=== PATIENT | male | born 1960 | race Caucasian/White ===

== ENCOUNTER → 2016-05-06 | Outpatient (CLI) | payer OTHER | END | disposition home or self-care (01) | LOC: CFH 11:56 | PROVIDERS: ATTEND Internal Medicine Pulmonary Disease | DX: J84.10 Pulmonary fibrosis, unspecified (principal); J47.9 Bronchiectasis, uncomplicated; R59.0 Localized enlarged lymph nodes | CPT/HCPCS: 71250 ==

== ENCOUNTER → 2016-08-29 | Outpatient (CLI) | payer OTHER | END | disposition home or self-care (01) | LOC: CFH 11:27 | PROVIDERS: ATTEND Internal Medicine Pulmonary Disease | DX: J84.112 Idiopathic pulmonary fibrosis (principal); Z78.9 Other specified health status | CPT/HCPCS: 76700 ==

== ENCOUNTER 2017-09-30 09:51 | Emergency (ER) | payer OTHER ==
[~2017-09-30] VITALS: Ht 180.3 cm; Wt 76.0 kg
[2017-09-30] MEDS ORDERED: OMEP40CA6 PO (10:26)
[2017-09-30] MEDS ORDERED: METO5TAB2 PO (10:26)
[2017-09-30] MEDS ORDERED: INSU100C SQ-INSULIN (10:26)
[2017-09-30] MEDS ORDERED: ISAV186C PO (10:26)
[2017-09-30] MEDS ORDERED: TACR0.5C4 PO (10:26)
[2017-09-30] MEDS ORDERED: INSU100V8 SQ (10:26)
[2017-09-30] MEDS ORDERED: PRAV20TA PO (10:26)
[2017-09-30] MEDS ORDERED: ATOV750O4 PO (10:26)
[2017-09-30] MEDS ORDERED: CALC-46 PO (10:26)
[2017-09-30] MEDS ORDERED: PNV11TAB PO (10:26)
[2017-09-30] MEDS ORDERED: DOCU100C33 PO (10:26)
[2017-09-30] MEDS ORDERED: EVER0.75 PO (10:26)
[2017-09-30 10:41] LABS: ALBUMIN 3.4 g/dL (3.4-5.0); ANION GAP 7 mmol/L (5-15); CALCIUM 9.1 mg/dL (8.5-10.1); CHLORIDE 106 mmol/L (98-107); CREATININE 1.18 mg/dL (0.7-1.3)
[2017-09-30 10:55] LABS: MEAN CORPUSCULAR HEMOGLOBIN 33.4 pg (27.5-34.5); MEAN CORPUSCULAR HGB CONC 34.5 g/dL (33.2-36.2); MEAN CORPUSCULAR VOLUME 96.8 fL (81-97); MEAN PLATELET VOLUME 8.1 fL (7.4-10.4); PLATELET COUNT 174 x10^3/uL (130-400); RED BLOOD COUNT 3.79 x10^6/uL (4.38-5.82); RED CELL DISTRIBUTION WIDTH 13.1 % (9.4-14.8)
[2017-09-30] MEDS ORDERED: TBO-FILGRASTIM 300 MCG/0.5 ML SQ ONE (11:00)
[2017-09-30 12:22] LABS: MD YES
[2017-09-30 12:32] LABS: BAND#(MANUAL) 0.13 x10^3/uL; BASOS#(MANUAL) 0.02 x10^3/uL (0-0.1); BASOS% (MANUAL) 1 % (0-1); EOS#(MANUAL) 0.02 x10^3/uL (0.0-0.4); EOS% (MANUAL) 1 % (1-7); LYMPH#(MANUAL) 0.32 x10^3/uL (1-3.4); LYMPHS% (MANUAL) 15 % (22-44); MONOS#(MANUAL) 0.23 x10^3/uL (0.3-2.7); MONOS% (MANUAL) 11 % (2-9); SEG#(MANUAL) 1.05 x10^3/uL (1.8-6.8)
[2017-09-30 12:33] LABS: OTHER CELLS # (MANUAL) 0.02 x10^3/uL (0-0); PROGRANULOCYTES# (MANUAL) 0.02 x10^3/uL (0-0); PROGRANULOCYTES% (MANUAL) 1 % (0-0)
[2017-09-30 12:34] LABS: OTHER CELLS % (MANUAL) 1 % (0-0)
[2017-09-30 12:35] LABS: BANDS%(MANUAL) 6 % (0-7); METAMYELOCYTES# (MANUAL) 0.21 x10^3/uL (0-0); METAMYELOCYTES% (MANUAL) 10 % (0-1); MYELOCYTES# (MANUAL) 0.08 x10^3/uL (0-0)
[2017-09-30 12:36] LABS: <PLATELET ESTIMATE> ADEQUATE; <PLT MORPHOLOGY> NORMAL PLT MORPH; <RBC MORPHOLOGY> NORMAL; MYELOCYTES% (MANUAL) 4 % (0-0); SEGS% (MANUAL) 50 % (42-75)
[2017-09-30 13:01] VITALS: BP 115/77
== END 2017-09-30 13:05 | disposition home or self-care (01) ==
LOC: ED 10:56
DX: D70.9 Neutropenia, unspecified (principal); I10 Essential (primary) hypertension
CPT/HCPCS: 36415; 80048; 82040; 85025; 96372; 99284; J1447

== ENCOUNTER → 2017-11-01 | Outpatient (CLI) | payer OTHER ==
[~2017-11-01] MED LIST: ATOV750O4 PO; CALC-46 PO; DOCU100C33 PO; EVER0.75 PO; INSU100C SQ-INSULIN; INSU100V8 SQ; ISAV186C PO; METO5TAB2 PO; OMEP40CA6 PO; PNV11TAB PO; PRAV20TA PO; TACR0.5C4 PO
== END | disposition home or self-care (01) ==
LOC: CARD 14:06
PROVIDERS: ATTEND Internal Medicine Critical Care Medicine
DX: Z94.2 Lung transplant status (principal)
CPT/HCPCS: 94060; 94618; 94726; 94729

== ENCOUNTER → 2017-12-27 | Outpatient (CLI) | payer OTHER | END | disposition home or self-care (01) | LOC: CFH 14:00 | PROVIDERS: ATTEND Internal Medicine | DX: R91.8 Other nonspecific abnormal finding of lung field (principal); I25.119 Atherosclerotic heart disease of native coronary artery with unspecified angina pectoris | CPT/HCPCS: 71250 ==